=== PATIENT | male | born 1950 | race Caucasian/White ===

== ENCOUNTER 2016-03-31 05:25 | Day surgery (SDC) | payer OTHER ==
[2016-03-30 16:12] VITALS: BMI 24.9
[2016-03-31] VITALS (12 sets, daily range): BP systolic 111–167; BP diastolic 62–91; PULSE 16–78; RESP 11–29; Ht 167.6 cm; Wt 71.6 kg
[~2016-03-31] VITALS: Ht 167.6 cm; Wt 71.6 kg
[~2016-03-31 05:25] MED LIST: ACET325T33 PO; OMEP40CA6 PO
[2016-03-31] MEDS ORDERED: CEFAZOLIN 1 GM INJ ONE (07:00)
[2016-03-31] MEDS ORDERED: BUPIVACAINE 0.25%/EPI (SDV) 30 ML INJ ONE (07:05)
[2016-03-31] MEDS ORDERED: PROPOFOL 20 ML ONE (07:26)
[2016-03-31] MEDS ORDERED: ACETAMINOPHEN 1000MG/100ML IV 100 ML ONE (07:26)
[2016-03-31] MEDS ORDERED: FENTAnyl 50 MCG/ML VIAL ONE ×2 (07:26→08:09)
[2016-03-31] MEDS ORDERED: LIDOCAINE 2% (SDV) 5 ML INJ ONE (07:27)
[2016-03-31] MEDS ORDERED: ROCURONIUM 50 MG INJ ONE ×2 (07:27→08:33)
--- NOTE | 2016-03-31 07:40 | HPN ---
Date/Time of Note Date/Time of Note DATE: 03/31/16 TIME: 07:39 Interval H&P Admission Note Pt. seen H&P reviewed: No system changes Pt. seen H&P reviewed. No system changes (I attest that I have seen and examined the patient and reviewed the operation in detail, as well as its risks , benefits and alternatives of the operation). I attest that I have seen and examined the patient and reviewed in detail the operation, and its associated risks, benefits and alternative. I have answered all the patient's questions to the best of my ability and the patient wishes to proceed. Please refer to rest of electronic medical record for additional updates. ANGELES OTERO M.D. Mar 31, 2016 07:40
[2016-03-31] MEDS ORDERED: DEXAMETHASONE 4 MG/ML 1 ML INJ ONE (08:10)
[2016-03-31] MEDS ORDERED: MEPERIDINE 25 MG INJ IV PRN (09:00)
[2016-03-31] MEDS ORDERED: LABETALOL HCL 20MG INJ IV PRN (09:00)
[2016-03-31] MEDS ORDERED: hydrALAzine 20 MG INJ IV PRN (09:00)
[2016-03-31] MEDS ORDERED: FENTAnyl 50 MCG/ML VIAL IV PRN ×2 (09:00)
[2016-03-31] MEDS ORDERED: EPHEDrine SULFATE 50 MG/5 ML SYG IV PRN (09:00)
[2016-03-31] MEDS ORDERED: ONDANSETRON 4 MG INJ IV PRN (09:00)
[2016-03-31] MEDS ORDERED: HYDROmorphONE (0.2 MG/ML) 10ML SYG IV PRN ×3 (09:00)
[2016-03-31] MEDS ORDERED: ONDANSETRON 4 MG INJ ONE (09:22)
[2016-03-31] MEDS ORDERED: NEOSTIGMINE 3 MG/3 ML SYRINGE ONE (09:29)
[2016-03-31] MEDS ORDERED: GLYCOPYRROLATE 0.4 MG INJ ONE (09:29)
[2016-03-31] MEDS: FENTAnyl 50 MCG/ML VIAL IV PRN ×2 (09:53→10:15)
--- NOTE | 2016-03-31 09:55 | OPR ---
Date/Time of Note Date/Time of Note DATE: 03/31/16 TIME: 09:55 Operative Report Operative Findings [facility] INPATIENT OPERATIVE NOTE PLACE OF SERVICE: [facility] DATE OF SURGERY: 03/31/2016 PREOPERATIVE DIAGNOSIS: 1. Left inguinal hernia 2. Gastritis. 3. Enlarged prostate without lower urinary tract symptoms. 4. Open inguinal hernia repair on the right, likely with mesh. POSTOPERATIVE DIAGNOSIS: 1. Left inguinal hernia with involvement of part of sigmoid colon 2. Gastritis. 3. Enlarged prostate without lower urinary tract symptoms. 4. Open inguinal hernia repair on the right, likely with mesh. OPERATION: 1. Laparoscopic left inguinal hernia with mesh (Symbotex 10 cm x 15 cm) SURGEON: Angeles Otero M.D. ELECTRICAL PROSPECTING ENGINEER: None ANESTHESIA: General endotracheal tube anesthesia ANESTHESIOLOGIST: Ch. Mariposa M.D. BRIEF SUMMARY: An otherwise uncomplicated laparoscopic left inguinal hernia repair with mesh was performed with findings of indirect hernia with slight involvement of sigmoid colon within it. BRIEF HISTORY: The patient is a very pleasant 65-year-old gentleman with a prior history of right inguinal hernia status post open repair in 2011, as well as mild comorbidity of BMI of 25.8, chronic gastritis, and enlarged prostate and perhaps hypertension, although not part of his regular comorbidity list in his chart from the outside, who presents with left inguinal hernia that is symptomatic, but is not associated with obstruction. Given the appearance of it and the changes in the patient's quality of life, I recommended that the patient considers undergoing laparoscopic, possible open, possible mesh, left inguinal hernia repair. I described the operation in detail as well as the risks, benefits, and alternatives and answered all the patient's and family's questions to the best of my ability. I believe that the patient and family appeared to understand and wished to proceed with surgery. For a detailed report of my consultation with patient and family, please refer to my separate consultation note. STATEMENT OF THE INFORMED CONSENT: The patient and family appeared to understand the risks of the operation to include, but not be limited to risk of postoperative pain and scar tissue, possible infection or bleeding requiring other interventions such as opening the wound, placement of drainage catheters, or other operative interventions; possible injury to surrounding to structures including bowel, bladder, bile duct, or blood vessels, or solid organs such as liver, kidney, or pancreas requiring other interventions or procedures; possible infection of the mesh causing significant increase in morbidity and mortality and requiring multiple interventions including but not limited to, placement of drainage catheters, imaging studies, as well as operative interventions with possible removal of the mesh and recurrence of hernia requiring future repair; possible other source of sepsis such as urinary tract infections or pneumonias, or other sources of potentially life threatening problems such as deep venous thrombus formation causing pulmonary embolism, myocardial arrhythmias and infarctions, and even . After careful consideration of all their options, the patient and family appeared to understand and wished to proceed with surgery. DESCRIPTION OF PROCEDURE: After obtaining informed consent, the patient was brought into the operating room and was placed in a normal supine position, where successful general endotracheal tube anesthesia was performed. Intravenous access was already in place and intravenous antimicrobials had been appropriately chosen and dosed prior to the operation. The patient's abdominal skin was prepped and draped from the nipple line down to the level of the upper thighs including the groin and in the usual sterile fashion. We then called a surgical time-out where the patient's identification, date of , nature of the operation, allergies, presence of intravenous antimicrobials, presence of needed equipment, and any other concerns were reviewed and agreed upon by all members of the operating room team. We then started the operation by placing a 5 mm [employer] trocar into the peritoneal space through a right lower quadrant 5 mm skin incision and using direct entry technique visualizing all the layers of the abdominal wall as we entered. Upon entry to the peritoneal space, we did not notice any obvious evidence of injury to underlying structures. We insufflated the abdominal cavity to a maximum pressure of 15 mmHg and again noted no significant adhesions in the region and found presence of a left inguinal hernia as suggested by the preoperative evaluation. Slight amount of the sigmoid colon was involved in the hernia but there was no evidence of strangulation or ischemia of the bowel. We placed a 12 mm trocar in the umbilical space as well as another 5 mm trocar in the right lower quadrant all under direct visualization and after injecting the sites with quarter percent Marcaine with epinephrine. With our instruments in place, we had excellent visualization and access to the pelvis. By positioning the patient in a Trendelenburg right side down position, the contents of the inguinal hernia spontaneously reduced and there was no issue with bowel ischemia or other major problems with adhesions. The bowel appeared to be viable. We carefully inspected the right side and there was no evidence of any hernia on that side. We could see evidence of prior mesh repair. We then placed a transverse cut above the area of the hernia in the standard fashion on the peritoneum and took down the peritoneal covering from the left groin region until we were able to dissect the sac completely from the cord structures. After complete dissection of the sac from the cord structures, we ensured adequate hemostasis and then placed a 10 cm x 15 cm mesh (Symbotex) into the abdominal cavity and widely covered the area of the left hernia with mesh within the pocket. The mesh laid in the pocket nicely. We then secured the mesh onto the pubic tubercle and on the superior aspect and the most lateral aspect of the mesh using absorbable tacks. This was done under low insufflation. We again ensured adequate hemostasis and then covered the mesh with peritoneum using the peritoneal layer that we had taken down previously. After insuring adequate hemostasis, we removed all our equipment from the abdominal cavity including the pneumoperitoneum, closed the umbilical fascial defect using one [id number] 0 Vicryl suture on a UR 6 needle, washed the wounds with copious amounts normal saline, injected the initial entry site with quarter percent Marcaine with epinephrine, and then closed the skin using interrupted 4 Monocryl suture. Light dressing was then applied. At the end of the operation, both the sponge count and needle count were reportedly correct x2. The patient tolerated the procedure without any reported complications. ESTIMATED BLOOD LOSS: 5 mL BLOOD OR BLOOD PRODUCT TRANSFUSIONS: None to my knowledge. SPECIMENS: None COMPLICATIONS: None. DISPOSITION: Recovery area. Disclaimer: Inadvertent spelling and grammatical errors are likely due to EHR/ dictation software use and do not reflect on the quality of delivered patient care. Also, please note that the electronic time recorded on this node does not necessarily reflect the actual time of the visit. ANGELES OTERO M.D. Mar 31, 2016 09:55
[2016-03-31] MEDS ORDERED: HYDROCODONE/APAP (5/325) TAB PO PRN ×2 (10:00)
[2016-03-31] MEDS ORDERED: DOCUSATE SODIUM 100 MG CAP PO PRN (10:00)
[2016-03-31] MEDS ORDERED: BISACODYL 10 MG SUPP PR PRN (10:00)
--- NOTE | 2016-03-31 14:25 | RADRPT ---
Vent Rate: 63 bpm RR Interval: 0 msec NH Interval: 156 msec QRS Duration: 84 msec QT Interval: 400 msec QTC Interval: 409 msec P-R-T Mosby: 71 - 45 - 65 degrees Normal sinus rhythm Normal ECG Electronically Signed By: Johnny Martin [id number]
== END 2016-03-31 11:50 | disposition home or self-care (01) ==
LOC: SDS 05:25
PROVIDERS: ATTEND Transplant Surgery
DX: K40.90 Unilateral inguinal hernia, without obstruction or gangrene, not specified as recurrent (principal); K29.70 Gastritis, unspecified, without bleeding; N40.0 Benign prostatic hyperplasia without lower urinary tract symptoms
CPT/HCPCS: 49650; 86850; 86900; 86901; 93005; J0131; J0690; J1100; J2175; J2405; J2710; J3010

== ENCOUNTER 2016-04-15 09:03 | Outpatient (CLI) | payer OTHER ==
[~2016-04-15] VITALS: Ht 165.1 cm; Wt 71.4 kg
[2016-04-15 09:07] VITALS: BP 150/71; PULSE 70; RESP 16; Ht 165.1 cm; Wt 71.4 kg
--- NOTE | 2016-04-15 17:46 | PN ---
Date/Time of Note Date/Time of Note DATE: 04/15/16 TIME: 17:42 Assessment/Plan Assessment/Plan Assessment/Plan [facility] Progress Note Date of Service: 04/15/16 Today's Impression & Plan: Overall doing well post op without major issues. No major wound problems. With above assessment, I've recommended the following for today: 1. F/u with PCP 2. F/u with us prn Thank you again for your great care of this very pleasant patient and wonderful family. If there are any questions, please feel free to call me at [phone]. TOTAL VISIT TIME: 20 minutes of which more than half was spent in [id number] discussion with the patient, possibly including family, as well as coordination of care between multiple physicians and providers. Disclaimer: Inadvertent spelling or grammatical errors are likely due to EHR/ dictation software use and do not reflect on the overall quality of patient care. Updated Clinical Summary: The patient is a very pleasant 65-year-old gentleman with a prior history of right inguinal hernia status post open repair in 2011, as well as mild comorbidity of BMI of 25.8, chronic gastritis, and enlarged prostate and perhaps hypertension, although not part of his regular comorbidity list in his chart from the outside, who presented with left inguinal hernia that was symptomatic, but is not associated with obstruction. S/p laparoscopic left inguinal hernia repair with mesh (Symbotex 10 cm x 15 cm) on 03/31/16. Comorbidities: 1. Left inguinal hernia with involvement of part of sigmoid colon 2. Gastritis. 3. Enlarged prostate without lower urinary tract symptoms. 4. Open inguinal hernia repair on the right, likely with mesh. Subjective: No major events or complaints; no abd pain and under control with medications; no n/v/d; no sob or cp; + flatus; + BM and normal; + activity Objective: Vitals: See below Exam: GENERAL: On exam, the patient was sitting in a chair and appeared to be comfortable and in no acute distress. ABDOMEN: Soft, nontender and nondistended. Incisions are clean, dry and intact without any evidence of erythema, edema, discharge, or hernia. There are no peritoneal signs or guarding. SKIN: Skin appears to be pink and feels warm to touch. NEUROLOGIC: Patient is awake, alert, and follows commands appropriately. Exam/Review of Systems Vital Signs Vitals Vital Signs Date Time Temp Pulse Resp B/P Pulse Ox O2 Delivery O2 Flow Rate FiO2 04/15/16 09:07 98.5 70 16 150/71 98 Room Air ANGELES OTERO M.D. Apr 15, 2016 17:46
== END 2016-04-15 16:50 | disposition home or self-care (01) ==
LOC: HPC 09:03
PROVIDERS: ATTEND Transplant Surgery
DX: K40.90 Unilateral inguinal hernia, without obstruction or gangrene, not specified as recurrent (principal); K29.70 Gastritis, unspecified, without bleeding; N40.0 Benign prostatic hyperplasia without lower urinary tract symptoms
CPT/HCPCS: G0463

== ENCOUNTER 2018-08-19 23:32 | Emergency (ER) | payer OTHER ==
[~2018-08-19] VITALS: Ht 165.1 cm; Wt 66.4 kg
[2018-08-19 23:42] VITALS: BP 181/89; PULSE 66; RESP 16; Ht 165.1 cm; Wt 66.4 kg
[2018-08-20] MEDS ORDERED: ACETAMINOPHEN 500 MG TAB PO STA (01:43)
--- NOTE | 2018-08-20 01:49 | ERD ---
ER Documentation Chief Complaint Chief Complaint PT FELL IN THE BATHROOM AFTER SHOWER,L ARM/SHOULDER PAIN HPI This is a 68-year-old male who presents for evaluation of a mechanical fall, on to his left shoulder. He slipped and fell in the bathroom, prior to arrival, he had no head trauma no neck pain. Pain is mainly to his shoulder, he denies any elbow pain, no numbness or tingling, no risk or hand pain. ROS All systems reviewed and are negative except as per history of present illness. Medications Home Meds Active Scripts Acetaminophen* (Tylenol*) 325 Mg Tablet, 1 TAB PO Q6 PRN for PAIN AND OR ELEVATED TEMP, #20 TAB Prov:ALEXYS YOUNG PA-C 09/19/15 Reported Medications Omeprazole* (Omeprazole*) 40 Mg Capsule., 40 MG PO DAILY, #30 CAP 03/11/16 Allergies Allergies: Coded Allergies: No Known Allergy (Unverified , 03/31/16) PMhx/Soc History of Surgery: Yes (HERNIA) Anesthesia Reaction: No Hx Neurological Disorder: No Hx Respiratory Disorders: No Hx Cardiac Disorders: No Hx Psychiatric Problems: No Hx Miscellaneous Medical Probl: No Hx Alcohol Use: No Hx Substance Use: No Hx Tobacco Use: No Physical Exam Vitals Vital Signs Date Temp Pulse Resp B/P (MAP) Pulse Ox O2 O2 Flow FiO2 Time Delivery Rate 08/19/18 97.9 66 16 181/89 99 23:42 (119) Physical Exam Const: Afebrile, nontoxic Head: Atraumatic Eyes: Normal conjunctiva Neck: No C-spine tenderness, no step-off ENT: Normal external ears, nose and mouth. Neck: Resp: Normal respiratory effort Cardio: Regular rate and rhythm, no murmurs rubs or gallops Abd: Soft nontender nondistended, no rebound or guarding Skin: Warm and dry Back: Ext: Right upper extremity: There is some tenderness over the anterior humerus, there is no axillary numbness, no deformities or step-off, there is no elbow tenderness, full range of motion of elbow, there is no tenderness of the wrist, radial pulses 2+, no snuffbox tenderness. Neur: Awake and alert Psych: Normal mood and affect Results 24 hrs Current Medications Medications Dose Sig/Maria Esther Start Time Status Last (Trade) Ordered Route PRN Stop Time Admin Dose Reason Admin 1,000 mg ONCE STAT 08/20/18 DC 08/20/18 Acetaminophen PO 01:43 08/20/18 01:51 (Tylenol 01:44 Tab) Procedures/MDM 68-year-old male presents for evaluation of left shoulder pain. On exam patient had no neurovascular deficits, compartments were soft and easily compressible, and he had no abrasions or lacerations. No evidence of head or neck trauma. Shoulder x-ray showed no evidence of dislocation or fracture, at discharge the patient was in no distress. X-ray Shoulder 3V Interpreted by me: Bones: No fracture Joints: No dislocation Foreign body: None Departure Diagnosis: Primary Impression: Fall Encounter type: initial encounter Qualified Codes: W19.XXXA - Unspecified fall, initial encounter Additional Impression: Shoulder pain Chronicity: unspecified Laterality: unspecified laterality Qualified Codes: M25.519 - Pain in unspecified shoulder Condition: Stable ARIE NEUMANN MD Aug 20, 2018 01:49
== END 2018-08-20 02:39 | disposition home or self-care (01) ==
LOC: E/R 23:32
DX: M25.512 Pain in left shoulder (principal)
CPT/HCPCS: 73030